=== PATIENT | female | born 1950 ===

== ENCOUNTER 2017-04-30 06:20 | Day surgery (SDC) | payer MEDICARE ==
[2017-04-24 09:45] VITALS: BMI 19.3
--- NOTE | 2017-04-29 21:12 | HP ---
REASON FOR ADMISSION: Left heart cath possible angioplasty, abnormal stress test. BRIEF CLINICAL HISTORY: A 67-year-old female with past medical history significant for chest pain off and on for 2 to 3 months. The patient underwent a stress test, abnormal, so the patient is scheduled for elective cardiac catheterization possibly angioplasty. PAST MEDICAL HISTORY: Significant for chest pain off and on 2 to 3 months, recent cardiac workup as follows. The patient had echocardiography done on 04/03/2017 that shows ejection fraction 70%. Moderate aortic regurgitation, trace mitral regurgitation, trace to mild tricuspid regurgitation, ejection fraction 70%, RV systolic pressure 21 dated 04/03/2017. The patient underwent stress test that shows abnormal myocardial perfusion study, a small reversible distal anteroseptal apical defect suggestive of ejection fraction 65% dated 04/03/2017. CURRENT MEDICATION: Aspirin. ALLERGIES: NO KNOWN DRUG ALLERGIES. REVIEW OF SYSTEMS: Nothing negative except as per HPI. History of chest pain off and on. PHYSICAL EXAMINATION: VITAL SIGNS: Height of the patient 5 feet, weight of the patient is 99 pounds, body mass is 19.6 kg per meter square. Rest of the examination as follows; heart rate 60, blood pressure 110/70. HEENT: PERRLA intact. NECK: Supple. No carotid bruit or thyromegaly. CHEST: Clear to auscultation. HEART: S1 and S2 regular. ABDOMEN: Soft. EXTREMITIES: Clubbing and cyanosis negative. LABORATORY DATA: Blood workup pending. IMPRESSION: Chest pain recurrent off and on. Abnormal stress, anteroseptal apical ischemia, moderate aortic regurgitation, trace to mild mitral regurgitation, mild tricuspid regurgitation, preserved LV function. RECOMMENDATIONS: Load with aspirin and Plavix. Followup the blood workup. If the blood work is within limits, we will proceed for cardiac catheterization. Further recommendations after cardiac catheterization. Thank you for for providing us the opportunity in taking care of the patient. Hernesto Holman MD
[2017-04-30 06:54] LABS: BASO # 0.04 K/mm3 (0.0-2.0); BASO % 0.9 % (0.0-3.0); EOS # 0.3 (0.0-0.7); EOS % 7.8 % (1.5-5.0); GRAN # 2.12 (1.4-6.5); GRAN % 48.4 % (50.0-68.0); HEMATOCRIT 37.6 % (36.0-48.0); LYMPH # 1.5 (1.2-3.4); LYMPH % 34.7 % (22.0-35.0); MEAN CELL VOLUME 92.4 fl (80.0-105.0); MEAN CORPUSCULAR HGB CONC 33.5 g/dl (31.0-37.0); MEAN PLATELET VOLUME 8.9 fl (7.0-11.0); MONO # 0.4 (0.1-0.6); MONO % 8.2 % (1.0-6.0); RED CELL DISTRIBUTION WIDTH 14.2 % (11.5-14.5); WHITE BLOOD COUNT 4.4 10^3/ul (4.5-11.0)
[2017-04-30 07:13] LABS: BLOOD UREA NITROGEN 19 mg/dL (7-21); CALCIUM 9.3 mg/dL (8.4-10.5); CARBON DIOXIDE 29 mmol/L (21-33); CHLORIDE 105 mmol/L (98-107); CHOLESTEROL 213 mg/dL (130-200); GFR AFRICAN-AMERICAN > 60; GLUCOSE,RANDOM 95 mg/dL (70-110); SODIUM 142 mmol/L (132-148)
[2017-04-30 07:22] VITALS: RESP 18
[2017-04-30] MEDS ORDERED: Lidocaine 2% Inj (20ml) ONE (07:23)
[2017-04-30] MEDS ORDERED: Iohexol 350 MG/100 ML VIAL ONE (07:24)
[2017-04-30] MEDS ORDERED: Nitroglycerin 50mg in D5W 0 MG/0 ML BOTTLE IV ONE (07:24)
[2017-04-30] MEDS ORDERED: Iohexol 350mgl/ml 50 ML ONE (07:24)
[2017-04-30] MEDS ORDERED: Phenylephrine 10 mg/ml Inj ONE (07:24)
[2017-04-30 07:29] LABS: INR 1.04 (0.93-1.08); PARTIAL THROMBOPLASTIN TIME 29.6 Seconds (25.1-36.5)
[2017-04-30] MEDS ORDERED: Midazolam 2 MG/2 ML VIAL ONE (09:01)
[2017-04-30 10:12] VITALS: TEMP 97.5
[2017-04-30] MEDS ORDERED: Sodium Chloride 0.9% 1,000 ML IV SCH (12:00)
[2017-04-30] MEDS ORDERED: Oxycodone/Acetaminophen 5/325 mg Tab PO STA (13:55)
[2017-04-30] MEDS ORDERED: Oxycodone/Acetaminophen 5/325 mg Tab ONE (13:58)
[2017-04-30] MEDS ORDERED: Oxycodone/Acetaminophen 5/325 mg Tab PO ONE (14:00)
[2017-04-30 15:27] VITALS: O2SAT 99
[2017-04-30 15:29] VITALS: BP 98/56; PULSE 70
[2017-04-30 15:40] LABS: BASO # 0.02 K/mm3 (0.0-2.0); BASO % 0.3 % (0.0-3.0); EOS # 0.3 (0.0-0.7); EOS % 3.9 % (1.5-5.0); GRAN # 4.14 (1.4-6.5); HEMATOCRIT 29.1 % (36.0-48.0); LYMPH % 28.9 % (22.0-35.0); MEAN CELL VOLUME 91.2 fl (80.0-105.0); MEAN CORPUSCULAR HEMOGLOBIN 31.3 pg (25.0-35.0); MEAN CORPUSCULAR HGB CONC 34.4 g/dl (31.0-37.0); MEAN PLATELET VOLUME 8.6 fl (7.0-11.0); MONO # 0.5 (0.1-0.6); MONO % 6.9 % (1.0-6.0); RED CELL DISTRIBUTION WIDTH 13.8 % (11.5-14.5); WHITE BLOOD COUNT 6.9 10^3/ul (4.5-11.0)
[2017-04-30 17:35] LABS: BASO # 0.03 K/mm3 (0.0-2.0); BASO % 0.4 % (0.0-3.0); EOS # 0.3 (0.0-0.7); EOS % 3.5 % (1.5-5.0); GRAN # 6.02 (1.4-6.5); GRAN % 71.8 % (50.0-68.0); HEMATOCRIT 31.9 % (36.0-48.0); LYMPH # 1.6 (1.2-3.4); LYMPH % 18.8 % (22.0-35.0); MEAN CELL VOLUME 91.9 fl (80.0-105.0); MEAN CORPUSCULAR HEMOGLOBIN 30.8 pg (25.0-35.0); MEAN CORPUSCULAR HGB CONC 33.5 g/dl (31.0-37.0); MEAN PLATELET VOLUME 8.9 fl (7.0-11.0); MONO # 0.5 (0.1-0.6); MONO % 5.5 % (1.0-6.0); RED CELL DISTRIBUTION WIDTH 14.1 % (11.5-14.5); WHITE BLOOD COUNT 8.4 10^3/ul (4.5-11.0)
--- NOTE | 2017-04-30 18:51 | CARD ---
APPROVED REPORT Procedure(s) performed: Left Heart Catheterization HISTORY The patient is a 67 year-old female with a history of : most recent EF: 65%. (EF Method: RADIONUCLIDE), Recurrent chest pain and abnormal stress test, disha apical ischemia on Nuclear scan. INDICATION The indication(s) include : positive stress test. CASE TECHNIQUE The patient was brought electively to the Cardiac Catheterization Laboratory in a fasting state and was prepped and draped in a sterile manner. The right femoral groin was infiltrated with 2% Lidocaine subcutaneous anesthesia. A 6FR GLIDESeverbillTH ACCESS KIT sheath was inserted into the right femoral artery without difficulty. Coronary angiography was performed using coronary diagnostic catheters. The left coronary system was accessed and visualized with a Diagnostic ,5 Fr JL 3.5 catheter. The right coronary system was accessed and visualized with a Diagnostic ,5 Fr JR 4 catheter. The left ventricle was accessed and visualized with a 5 Fr Pigtail 145 (Angled) catheter. Left ventricular/Aortic Valve gradient assessed on pullback. Left ventriculogram was performed in PERERA projection. Pre-demployment femoral angiogram was performed . Closure device was deployed with a 6 Fr / 7 Fr MynxGrip without any complications. The patient tolerated the procedure well and there were no complications associated with the procedure. Vessel Analysis The patient's coronary anatomy is right dominant. The left main coronary artery is a medium size vessel without significant stenosis. The left main bifurcates to the left anterior descending and circumflex. The left anterior descending artery is a medium size vessel without significant stenosis. Distal LAD like athread The first diagonal branch is a small size vessel with intimal irregularities. The circumflex artery is a medium size vessel with intimal irregularities and without significant stenosis. The first obtuse marginal branch is a small size vessel . The right coronary artery is a medium size vessel without significant stenosis. The right posterior descending artery is a small size vessel with diffuse calcification noted throughout this vessel and without significant stenosis. There is a 55% stenosis in the distal segment. Diffusely diseased but no focal flow limiting stenosis. Left Ventricle The left ventricle is normal in size with normal contractility. There was no cardiomyopathy. The left ventricular ejection fraction is estimated to be 60-65%. The left ventricular end diastolic pressure is 12 mmHg. There was no gradient across the aortic valve upon pullback. 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 Small calibre vessels Preserved Lv Fx. EF-60-65%, EDP-12 mmof hg. Recommendations Aggressive Medical TherapyCardiac Risk Reduction Program W/u for Non ischemic chest pain. Cc; Dr. Lutz
--- NOTE | 2017-05-01 09:41 | CARD ---
APPROVED REPORT EKG Measurement Heart [id number] <Conclusion> Normal sinus rhythm Baseline artifact PWNL
== END 2017-04-30 18:00 | disposition home or self-care (01) ==
LOC: CATH 06:20
PROVIDERS: ATTEND Internal Medicine Cardiovascular Disease
DX: I25.10 Atherosclerotic heart disease of native coronary artery without angina pectoris (principal); I08.3 Combined rheumatic disorders of mitral, aortic and tricuspid valves; R94.39 Abnormal result of other cardiovascular function study; Z79.82 Long term (current) use of aspirin
CPT/HCPCS: 36415; 80048; 80061; 82948; 85025; 85610; 85730; 86850; 86900; 93005; 93458; 99152; C1760; C1769; C1887 ×2; J1644; J2250; J3010; J7040 ×2; Q9967 ×2